=== PATIENT | male | born 1935 ===

== ENCOUNTER 2016-12-03 17:52 | Inpatient (IN) | payer MEDICARE ==
[2016-12-03] MEDS ORDERED: XARELTO20 M1 PO (18:24)
[2016-12-03] MEDS ORDERED: VITAMIN D-32000 UNI4 PO (18:27)
[2016-12-03] MEDS ORDERED: VITAMIN B-12250 MC2 PO (18:28)
[2016-12-03] MEDS ORDERED: COZAAR25 M1 PO (18:28)
[2016-12-03] MEDS ORDERED: GLUCOTROL10 M1 PO (18:28)
[2016-12-03] MEDS ORDERED: GLUCOPHAGE850 M1 PO (18:30)
[2016-12-03] MEDS ORDERED: LOPRESSOR50 M1 PO (18:30)
[2016-12-03] MEDS ORDERED: PRESERVISION A1 EAC5 PO (18:31)
[2016-12-03 18:39] LABS: BASO % 0.4 % (0-2); EOS % 1.4 % (0-7); EOSINOPHIL ABSOLUTE COUNT 0.1 tho/cmm (0.0-0.7); HGB-HEMOGLOBIN 6.5 gm/dl (13.5-17.0); IMMATURE GRANULOCYTES ABSOLUTE 0.01 tho/cmm (0-0.03); IMMATURE GRANULOCYTES PERCENT 0.1 % (0-0.3); LYMPH % 24.7 % (20-45); LYMPH ABSOLUTE COUNT 1.9 tho/cmm (0.8-4.5); MCV (MEAN CELL VOLUME) 76.4 fl (82.0-96.0); MEAN PLATELET VOLUME 8.7 cmc (9.4-12.4); MONO % 8.9 % (0-12); MONOCYTE ABSOLUTE COUNT 0.7 tho/cmm (0.0-1.2); NEUTROPHIL ABSOLUTE COUNT 4.9 tho/cmm (1.6-8.0); NEUTROPHIL-AUTOMATED 4.9 tho/cmm (1.6-8.0); NEUTROPHILS % 64.5 % (40-80); PLATELET COUNT 279 tho/cmm (150-450); RED BLOOD COUNT 3.09 mil/cmm (4.40-5.70); RED CELL DISTRIBUTION WIDTH 18.1 % (12.4-16.4); WHITE BLOOD COUNT 7.7 tho/cmm (4.0-10.0)
[2016-12-03 18:45] LABS: INR 1.6 INR (0.9-1.1); PROTHROMBIN TIME 18.9 SECONDS (9.0-13.6)
[2016-12-03 18:53] LABS: HCT-HEMATOCRIT 23.6 % (36.0-53.5); MCHC MEAN CORPUSCULAR HGB CONC 27.5 % (32.0-36.0)
[2016-12-03 18:56] LABS: IRON 14 ug/dl (49-181); IRON BINDING CAPACITY 415 ug/dl (250-450)
[2016-12-03 18:59] LABS: ANION GAP 13 mmol/L (0-20); BLOOD UREA NITROGEN 19 mg/dl (6-24); CALCIUM 8.7 mg/dl (8.5-10.5); CARBON DIOXIDE-VENOUS 26 mmol/L (22-32); CHLORIDE 109 mmol/l (96-110); CREATININE 0.97 mg/dl (0.60-1.30); FERRITIN 25 ng/ml (22-388); GLUCOSE 112 mg/dL (70-110); POTASSIUM 4.4 mmol/L (3.7-5.1); SODIUM 144 mmol/L (135-145); eGFR VALUE FOR BLACK 86 mL/Min
[2016-12-03 19:25] LABS: URINE BILIRUBIN NEGATIVE (NEG); URINE BLOOD NEGATIVE (NEG); URINE GLUCOSE (UA) NEGATIVE (NEG); URINE KETONE NEGATIVE (NEG); URINE LEUKOCYTE ESTERASE NEGATIVE (NEG); URINE NITRITE NEGATIVE (NEG); URINE PROTEIN SMALL (NEG)
[2016-12-03 19:27] LABS: URINE APPEARANCE CLEAR; URINE COLOR YELLOW
[2016-12-03 19:33] LABS: URINE EPITHELIAL CELLS RARE /[HPF] (0-10); URINE RBC RARE /[HPF] (0-5); URINE WBC RARE /[HPF] (0-5)
[2016-12-04 06:48] LABS: BASO % 0.4 % (0-2); EOSINOPHIL ABSOLUTE COUNT 0.1 tho/cmm (0.0-0.7); HGB-HEMOGLOBIN 7.3 gm/dl (13.5-17.0); IMMATURE GRANULOCYTES ABSOLUTE 0.01 tho/cmm (0-0.03); IMMATURE GRANULOCYTES PERCENT 0.1 % (0-0.3); LYMPH % 16.8 % (20-45); LYMPH ABSOLUTE COUNT 1.2 tho/cmm (0.8-4.5); MCH (MEAN CORPUSCULAR HGB) 22.3 pg (28.0-32.0); MCHC MEAN CORPUSCULAR HGB CONC 29.2 % (32.0-36.0); MCV (MEAN CELL VOLUME) 76.5 fl (82.0-96.0); MEAN PLATELET VOLUME 8.5 cmc (9.4-12.4); MONO % 10.4 % (0-12); MONOCYTE ABSOLUTE COUNT 0.7 tho/cmm (0.0-1.2); NEUTROPHIL ABSOLUTE COUNT 4.9 tho/cmm (1.6-8.0); NEUTROPHIL-AUTOMATED 4.9 tho/cmm (1.6-8.0); NEUTROPHILS % 71.3 % (40-80); PLATELET COUNT 224 tho/cmm (150-450); RED BLOOD COUNT 3.27 mil/cmm (4.40-5.70); RED CELL DISTRIBUTION WIDTH 17.3 % (12.4-16.4); WHITE BLOOD COUNT 6.8 tho/cmm (4.0-10.0)
[2016-12-04 06:49] LABS: INR 1.5 INR (0.9-1.1); PROTHROMBIN TIME 17.8 SECONDS (9.0-13.6)
--- NOTE | 2016-12-04 20:26 | NUR ---
VIRTUAL CARE NOTE: PT. IN BED, STATES IS HAVING A COLONOSCOPY IN THE AM AND HAS HAD THIS DONE BEFORE. DENIES PAIN OR ANY QUESTIONS AT THIS TIME. INSTRUCTED TO CALL FOR FUTURE NEEDS. STATES VERBAL AGREEMENT.
--- NOTE | 2016-12-05 14:35 | NUR ---
VIRTUAL CARE NOTE: PT AWAKE, RESTING IN BED, AT BEDSIDE, GI PROGRESS NOTES REVIEWED POST COLONOSCOPY. LABS REVIEWED. PT DENIES ABD PAIN, N/V. PT'S VERBALIZES SHE WAS ABLE TO TALK W/ GI DR AFTER THE COLONOSCOPY QUESTIONS ANSWERED. VN WILL CONTINUE TO MONITOR RECORD AND FOLLOW W/ PT
[2016-12-06 04:50] LABS: BASO % 0.5 % (0-2); EOS % 0.5 % (0-7); HCT-HEMATOCRIT 24.2 % (36.0-53.5); HGB-HEMOGLOBIN 6.8 gm/dl (13.5-17.0); IMMATURE GRANULOCYTES ABSOLUTE 0.04 tho/cmm (0-0.03); IMMATURE GRANULOCYTES PERCENT 0.5 % (0-0.3); LYMPH % 21.1 % (20-45); LYMPH ABSOLUTE COUNT 1.6 tho/cmm (0.8-4.5); MCH (MEAN CORPUSCULAR HGB) 22.2 pg (28.0-32.0); MCV (MEAN CELL VOLUME) 79.1 fl (82.0-96.0); MEAN PLATELET VOLUME 9.6 cmc (9.4-12.4); MONO % 13.8 % (0-12); MONOCYTE ABSOLUTE COUNT 1.1 tho/cmm (0.0-1.2); NEUTROPHIL ABSOLUTE COUNT 4.9 tho/cmm (1.6-8.0); NEUTROPHIL-AUTOMATED 4.9 tho/cmm (1.6-8.0); NEUTROPHILS % 63.6 % (40-80); PLATELET COUNT 232 tho/cmm (150-450); RED BLOOD COUNT 3.06 mil/cmm (4.40-5.70); RED CELL DISTRIBUTION WIDTH 18.3 % (12.4-16.4); WHITE BLOOD COUNT 7.6 tho/cmm (4.0-10.0)
[2016-12-06 05:18] LABS: MCHC MEAN CORPUSCULAR HGB CONC 28.1 % (32.0-36.0)
[2016-12-07] MEDS ORDERED: VENOFER100 MG/52 IV (10:50)
[2016-12-07] MEDS ORDERED: COUMADIN5 M2 PO (10:51)
[2016-12-07] MEDS ORDERED: COUMADIN10 M1 PO (10:51)
[2016-12-07] MEDS ORDERED: STOP THE FOLLOWING: (10:52)
[2016-12-07] MEDS ORDERED: PROTONIX40 M2 PO (10:52)
== END 2016-12-07 12:05 | DRG 345 ==
LOC: EDMED 17:52 → EMR2 21:21 → 5WD 21:22
PROVIDERS: Emergency Medicine; Internal Medicine; Psychiatry & Neurology Psychiatry; ADMIT Hospitalist
PROC: 30233N1 Transfusion of Nonautologous Red Blood Cells into Peripheral Vein, Percutaneous Approach (ICD-10-PCS; 2016-12-03)
PROC: 5A09357 Assistance with Respiratory Ventilation, Less than 24 Consecutive Hours, Continuous Positive Airway Pressure (ICD-10-PCS; 2016-12-03)
PROC: 0DB68ZX Excision of Stomach, Via Natural or Artificial Opening Endoscopic, Diagnostic (ICD-10-PCS; 2016-12-04)
PROC: 0DB98ZX Excision of Duodenum, Via Natural or Artificial Opening Endoscopic, Diagnostic (ICD-10-PCS; 2016-12-04)
PROC: 0D5C8ZZ Destruction of Ileocecal Valve, Via Natural or Artificial Opening Endoscopic (ICD-10-PCS; principal; 2016-12-05)
PROC: 0D5H8ZZ Destruction of Cecum, Via Natural or Artificial Opening Endoscopic (ICD-10-PCS; 2016-12-05)
PROC: 05H633Z Insertion of Infusion Device into Left Subclavian Vein, Percutaneous Approach (ICD-10-PCS; 2016-12-06)
DX: K55.21 Angiodysplasia of colon with hemorrhage (principal); D62 Acute posthemorrhagic anemia; I48.2 Chronic atrial fibrillation; J43.9 Emphysema, unspecified; D50.9 Iron deficiency anemia, unspecified; I10 Essential (primary) hypertension; F17.210 Nicotine dependence, cigarettes, uncomplicated; K64.8 Other hemorrhoids; Z79.01 Long term (current) use of anticoagulants; K29.70 Gastritis, unspecified, without bleeding; K26.9 Duodenal ulcer, unspecified as acute or chronic, without hemorrhage or perforation; Z85.828 Personal history of other malignant neoplasm of skin; I25.10 Atherosclerotic heart disease of native coronary artery without angina pectoris; Z95.1 Presence of aortocoronary bypass graft; R22.42 Localized swelling, mass and lump, left lower limb; Z79.84 Long term (current) use of oral hypoglycemic drugs; G47.30 Sleep apnea, unspecified; Z96.651 Presence of right artificial knee joint; K58.9 Irritable bowel syndrome, unspecified
CPT/HCPCS: C1751; C9113; J1756; J1815; J1940; J7030; J7050; P9016